=== PATIENT | male | born 1985 | race Two or more races ===

== ENCOUNTER 2022-05-22 17:49 | Emergency (ER) | payer MEDICAID ==
[~2022-05-22] VITALS: Ht 182.9 cm; Wt 191.4 kg
[2022-05-22 18:03] VITALS: BP 159/90
[2022-05-22] MEDS ORDERED: BUDE180A INH (18:25)
[2022-05-22] MEDS ORDERED: MINE3.5O OP (18:25)
[2022-05-22] MEDS ORDERED: ALBU8.5H8 INH (18:25)
[2022-05-22] MEDS ORDERED: CEPH500C2 PO (19:00)
--- NOTE | 2022-05-22 19:15 | NUR ---
Patient discharged to home in stable condition. Written and verbal after care instructions given. Patient verbalizes understanding of instruction.
== END 2022-05-22 19:16 | disposition home or self-care (01) ==
LOC: ER 17:57
DX: L60.0 Ingrowing nail (principal); B35.3 Tinea pedis; H04.123 Dry eye syndrome of bilateral lacrimal glands; J45.909 Unspecified asthma, uncomplicated; Z79.899 Other long term (current) drug therapy